=== PATIENT | male | born 1980 | race Caucasian/White ===

== ENCOUNTER 2017-04-19 14:35 | Emergency (ER) | payer MEDICAID ==
[~2017-04-19] VITALS: Ht 177.8 cm; Wt 81.6 kg
[2017-04-19 14:51] VITALS: BP 114/90
[2017-04-19] MEDS ORDERED: LIDOCAINE 1% ***ER ONLY *** 10 MG/ML VIAL INJ ONE (15:25)
[2017-04-19] MEDS ORDERED: HYDROcodone/APAP 5/325 MG 1 TAB TAB PO ONE (15:25)
--- NOTE | 2017-04-19 16:00 | NUR ---
LAC CLEANED AND DRESSED.
--- NOTE | 2017-04-19 16:45 | NUR ---
DR. FOWLER AT BEDSIDE FOR LAC REPAIR.
--- NOTE | 2017-04-19 17:45 | NUR ---
Dr. Bush at bedside, for left hand splint
[2017-04-19 17:56] VITALS: BP 124/85
[2017-04-19] MEDS ORDERED: BACITRACIN OINT 500 UNITS/GM PKT TP ONE (17:56)
--- NOTE | 2017-04-19 17:56 | NUR ---
Patient discharged with v/s stable. Written and verbal after care instructions given and explained. Patient alert, oriented and verbalized understanding of instructions. Ambulatory with steady gait. All questions addressed prior to discharge. ID band removed. Patient advised to follow up with PMD. Rx of KEFLEX/MOTRIN given. Patient educated on indication of medication including possible reaction and side effects. Opportunity to ask questions provided and answered.
== END 2017-04-19 17:56 | disposition home or self-care (01) ==
LOC: MED 14:35
DX: S61.412A Laceration without foreign body of left hand, initial encounter (principal); Z71.6 Tobacco abuse counseling; W27.8XXA Contact with other nonpowered hand tool, initial encounter; Y93.89 Activity, other specified; Y92.89 Other specified places as the place of occurrence of the external cause; Y99.8 Other external cause status
CPT/HCPCS: 12002; 73130; 90471; 90715; 99284; Q0092

== ENCOUNTER 2017-04-22 17:13 | Emergency (ER) | payer MEDICAID ==
[~2017-04-22] VITALS: Ht 172.7 cm; Wt 79.8 kg
[2017-04-22 18:00] VITALS: BP 126/78
--- NOTE | 2017-04-22 18:05 | NUR ---
PATIENT PRESENTS TO ED WITH FOLLOW UP FOR WOUND CHECK . DENIES N/V/D; SKIN IS PINK/WARM/DRY; AAOX4 WITH EVEN AND STEADY GAIT; LUNGS CLEAR BL; HR EVEN AND REGULAR; PT DENIES ANY FEVER, CP, SOB, OR COUGH AT THIS TIME; PATIENT STATES PAIN OF 0/10 AT THIS TIME; VSS; PATIENT POSITIONED FOR COMFORT; HOB ELEVATED; BEDRAILS UP X2; BED DOWN. ER MD MADE AWARE OF PT STATUS.
--- NOTE | 2017-04-22 18:08 | NUR ---
ANKUR DESHPANDE---EVALUATING PT IN TRIAGE---- CLEANED WOUND, APPLY BACITRACIN AND CLEAN NON ADHESIVE 2X2 WITH KERLIX
[2017-04-22 18:09] VITALS: BP 126/78
--- NOTE | 2017-04-22 18:09 | NUR ---
Patient discharged with v/s stable. Written and verbal after care instructions given and explained. Patient verbalized understanding. Ambulatory with steady gait. All questions addressed prior to discharge. Advised to follow up with PMD.
[2017-04-22] MEDS ORDERED: BACITRACIN OINT 500 UNITS/GM PKT TP ONE (18:16)
== END 2017-04-22 18:09 | disposition home or self-care (01) ==
LOC: MED 17:13
DX: S61.412D Laceration without foreign body of left hand, subsequent encounter (principal); F17.210 Nicotine dependence, cigarettes, uncomplicated; X58.XXXD Exposure to other specified factors, subsequent encounter
CPT/HCPCS: 99282

== ENCOUNTER 2018-12-29 19:58 | Emergency (ER) | payer SELFPAY ==
[~2018-12-29] VITALS: Ht 177.8 cm; Wt 83.9 kg
[2018-12-29 20:05] VITALS: BP 122/75
--- NOTE | 2018-12-29 20:08 | NUR ---
TO LOBBY A/W BED AMBULATORY
--- NOTE | 2018-12-29 20:15 | NUR ---
PT TAKEN TO XRAY VIA WC.
--- NOTE | 2018-12-29 20:24 | NUR ---
PT BROUGHT TO CHAIR B BY WHEELCHAIR FROM X RAY.
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
--- NOTE | 2018-12-29 21:05 | NUR ---
CHARLEE VALLEJO EVALUATING AT CHAIR.
[2018-12-29 21:33] VITALS: BP 122/75
--- NOTE | 2018-12-29 21:33 | NUR ---
Patient discharged with v/s stable. Written and verbal after care instructions given and explained. Patient alert, oriented and verbalized understanding of instructions. Ambulatory with steady gait. All questions addressed prior to discharge. ID band removed. Patient advised to follow up with PMD. Rx of Motrin 400 mg given. Patient educated on indication of medication including possible reaction and side effects. Opportunity to ask questions provided and answered.
== END 2018-12-29 21:33 | disposition home or self-care (01) ==
LOC: MED 19:58
DX: S62.390A Other fracture of second metacarpal bone, right hand, initial encounter for closed fracture (principal); Y04.2XXA Assault by strike against or bumped into by another person, initial encounter; Y93.89 Activity, other specified; Y92.89 Other specified places as the place of occurrence of the external cause; Y99.8 Other external cause status
CPT/HCPCS: 73130; 99283

== ENCOUNTER 2019-02-28 17:23 | Emergency (ER) | payer SELFPAY ==
[~2019-02-28] VITALS: Ht 167.6 cm; Wt 81.6 kg
[2019-02-28 17:29] VITALS: BP 128/86
--- NOTE | 2019-02-28 17:31 | NUR ---
PT TO ER LOBBY. PT ALERT AND AWAKE. VS STABLE
--- NOTE | 2019-02-28 17:53 | NUR ---
PT TO CHAIR B WITH STEADY GAIT
[2019-02-28] MEDS ORDERED: IBUPROFEN 800 MG TAB PO ONE (18:05)
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
[2019-02-28 18:52] VITALS: BP 128/86
--- NOTE | 2019-02-28 18:52 | NUR ---
Patient discharged with v/s stable. Written and verbal after care instructions given and explained. Patient alert, oriented and verbalized understanding of instructions. Ambulatory with steady gait. All questions addressed prior to discharge. ID band removed. Patient advised to follow up with PMD. Rx of [place] and Ibuprofen given. Patient educated on indication of medication including possible reaction and side effects. Opportunity to ask questions provided and answered.
== END 2019-02-28 18:52 | disposition home or self-care (01) ==
LOC: MED 17:23
DX: S62.330A Displaced fracture of neck of second metacarpal bone, right hand, initial encounter for closed fracture (principal); F17.210 Nicotine dependence, cigarettes, uncomplicated; Y33.XXXA Other specified events, undetermined intent, initial encounter; Y93.89 Activity, other specified; Y92.89 Other specified places as the place of occurrence of the external cause; W22.01XA Walked into wall, initial encounter
CPT/HCPCS: 73110; 73130; 99283

== ENCOUNTER 2022-01-16 02:28 | Emergency (ER) | payer MEDICAID ==
[~2022-01-16] VITALS: Ht 170.2 cm; Wt 77.3 kg
[2022-01-16 02:36] VITALS: BP 137/86
--- NOTE | 2022-01-16 02:39 | NUR ---
PT TO LOBBY.
--- NOTE | 2022-01-16 02:42 | NUR ---
CALLED CLAUDIA MCGUIRE, PT DOES NOT WANT TO MAKE REPORT. INCIDENT #[id number]
--- NOTE | 2022-01-16 03:32 | NUR ---
ATTEMPTED TO CALL PATIENT FROM LOBBY X3 WITH NO RESPONSE.
== END 2022-01-16 03:32 | disposition left against medical advice (07) ==
LOC: MED 02:28
DX: M79.10 Myalgia, unspecified site (principal); M25.511 Pain in right shoulder; M79.651 Pain in right thigh; Z53.21 Procedure and treatment not carried out due to patient leaving prior to being seen by health care provider